=== PATIENT | female | born 1990 | race Caucasian/White ===

== ENCOUNTER 2022-09-06 06:44 | Day surgery (SDC) | payer BC ==
[2022-09-06 06:54] LABS: HCG URINE TEST NEGATIVE (NEGATIVE)
[2022-09-06] MEDS ORDERED: TORAdol 30 mg Injection ONE (06:58)
[2022-09-06] MEDS ORDERED: DIPRIVAN 200 MG/20 ML IV ONE (06:58)
[2022-09-06] MEDS ORDERED: Xylocaine-Mpf 2% 5 Ml Vial ONE (06:58)
[2022-09-06] MEDS ORDERED: Zofran 4 MG/2 ML VIAL ONE (06:58)
[2022-09-06] MEDS ORDERED: SUBLIMAZE 100 MCG/2 ML ONE (06:58)
[2022-09-06] MEDS ORDERED: Decadron 4 MG INJ ONE (06:58)
[2022-09-06] MEDS ORDERED: Lactated Ringers 1,000 ML IV SCH (07:00)
[2022-09-06] MEDS ORDERED: CLINDAMYCIN-D5W 900 MG/50 ML*** 900 MG/50 ML BAG IV SCH (07:00)
[2022-09-06] MEDS ORDERED: Versed 2 MG/2 ML Injection ONE (08:10)
[2022-09-06] MEDS ORDERED: Pepcid 20 MG VIAL IV ONE (08:15)
[2022-09-06] MEDS ORDERED: Quelicin Fliptop 200 MG/10 ML ONE (08:17)
[2022-09-06 10:05] VITALS: BP 104/62; PULSE 77; O2SAT 99
--- NOTE | 2022-09-07 09:26 | OP ---
SURGERY DATE/TIME: 09/06/2022 0824 PREOPERATIVE DIAGNOSIS: Retained intrauterine device. POSTOPERATIVE DIAGNOSIS: Retained intrauterine device. PROCEDURE: Hysteroscopic removal of intrauterine device, Mirena. SURGEON: Ministerio Espitia D.O. CASTING MACHINE CONTROL BOARD OPERATOR: Peyton Lozano, surgical oncologist. ANESTHESIA: General. ESTIMATED BLOOD LOSS: Minimal. COMPLICATIONS: None. INDICATIONS: The risks, benefits, indications and alternatives of the procedure were reviewed with the patient prior to the procedure. The patient understood the risk of infection, bleeding, bowel injury, bladder injury, uterine perforation, pelvic infection associated with the surgery however desires to have this surgery as a possible means to alleviate her current medical condition. DESCRIPTION OF PROCEDURE AND FINDINGS: At this point the patient is taken to the operating room, given general sedation, placed in dorsal lithotomy position, prepped and draped in the usual sterile fashion. A weighted speculum is then placed in the patient's vagina and the anterior lip of the cervix was grasped with a single tooth tenaculum. Endocervical dilators were advanced through the endocervical canal as a means to dilate the cervix and at this point a 5 mm hysteroscope was placed in through the endocervical canal where visualization of the intrauterine device was noted in the fundal region. Hysteroscopic graspers were used and placed through the channel of the hysteroscope where it was used to grasp the intrauterine device and was removed without complication. There was no bleeding that was noted after removal. From this point, all instruments were removed from the patient's vaginal region. The patient was taken out of dorsal lithotomy position, was taken out of anesthesia and was then taken to the recovery room in stable condition. All instruments and laps were accounted for x2.
== END 2022-09-06 09:55 | disposition home or self-care (01) ==
LOC: SDC 06:44
PROVIDERS: ATTEND Obstetrics & Gynecology
DX: Z30.42 Encounter for surveillance of injectable contraceptive (principal)
CPT/HCPCS: 36415; 81025; J0330; J1100; J1885; J2250; J2405; J2704; J3010